=== PATIENT | female | born 2000 | race Caucasian/White ===

== ENCOUNTER 2024-12-03 09:29 | Emergency (ER) | payer SELFPAY ==
[~2024-12-03] VITALS: Ht 149.9 cm; Wt 58.9 kg
[2024-12-03 09:34] VITALS: O2SAT 98
[2024-12-03] MEDS ORDERED: METOCLOPRAMIDE HCL 10MG TABLET PO ONE (12:15)
[2024-12-03] MEDS ORDERED: ONDA4TAB50 MT (12:52)
[2024-12-03] MEDS ORDERED: IBUP-2029 MT (12:52)
[2024-12-03] MEDS: KETOROLAC 15MG/ML VIAL IM SCH (13:00)
[2024-12-03] MEDS ORDERED: ACETAMINOPHEN 325MG TABLET PO SCH (13:00)
[2024-12-03] MEDS: KETOROLAC 15MG/ML VIAL IM ONE (13:15)
[2024-12-03] MEDS: ACETAMINOPHEN 325MG TABLET PO ONE (13:16)
[2024-12-03] MEDS: ONDANSETRON 4MG ODT PO ONE (13:16)
[2024-12-03] MEDS: METOCLOPRAMIDE HCL 10MG TABLET PO SCH (13:16)
[2024-12-03 13:20] VITALS: BP 121/71; PULSE 76; RESP 15; TEMP 36.83628; O2SAT 99
== END 2024-12-03 13:27 | disposition home or self-care (01) ==
LOC: ER 09:29
DX: R51.9 Headache, unspecified (principal); R11.0 Nausea
CPT/HCPCS: 99285; 70450; 81025; 96372; J1885; J8597; Q0162

== ENCOUNTER 2025-02-22 23:10 | Emergency (ER) | payer MEDICAID ==
[~2025-02-22] VITALS: Ht 152.4 cm; Wt 69.9 kg
[~2025-02-22 23:10] MED LIST: IBUP-2029 MT; ONDA4TAB50 MT
[2025-02-22 23:20] VITALS: O2SAT 99
[2025-02-22 23:24] VITALS: BP 131/82; PULSE 73; RESP 16; TEMP 36.6; O2SAT 99
[2025-02-23 00:07] LABS: CLARITY URINE TURBID (CLEAR); COLOR URINE RED (YELLOW); GLUCOSE URINE NEGATIVE (NEGATIVE); KETONES URINE NEGATIVE (NEGATIVE); LEUKOCYTE ESTERASE URINE 2+ (NEGATIVE); NITRITE URINE NEGATIVE (NEGATIVE); OCCULT BLOOD URINE 3+ (NEGATIVE); PH URINE 5.5 (4.5-8.0); PROTEIN URINE 2+ (NEGATIVE); SPECIFIC GRAVITY URINE 1.027 (1.005-1.030); UROBILINOGEN URINE 0.2 E.U./dL (0.2-1.0)
[2025-02-23 00:10] LABS: BASOPHILS % 0.7 % (0.0-2.0); DIFFERENTIAL COMMENT 0; EOSINOPHILS % 3.2 % (0.0-5.0); HEMATOCRIT. 39.7 % (36.0-48.0); HEMOGLOBIN. 13.5 g/dL (12.0-16.0); LYMPHOCYTES % 31.1 % (20.0-50.0); MEAN CORPUSCULAR VOLUME 100.1 fL (81.0-99.0); MEAN PLATELET VOLUME 9.4 fl (7.4-10.4); MONOCYTES % 8.3 % (2.0-8.0); NEUTROPHILS % 56.7 % (40.0-76.0); PLATELET 227 x1000/uL (130-400); RED BLOOD CELL COUNT 3.96 mill/uL (4.2-5.4)
[2025-02-23 00:18] LABS: CHLORIDE 105 mEq/L (98-107); POTASSIUM 3.3 mEq/L (3.5-5.1); SODIUM 140 mEq/L (136-145)
[2025-02-23 00:19] LABS: CALCIUM 9.8 mg/dL (8.7-10.4); CARBON DIOXIDE 25 mEq/L (21-32)
[2025-02-23 00:24] LABS: CREATININE 0.7 mg/dL (0.6-1.0); GLUCOSE 102 mg/dL (70-105); UREA NITROGEN BLOOD 8 mg/dL (9-23)
[2025-02-23 00:26] LABS: ALANINE AMINOTRANSFERASE 179 IU/L (10-49); ALBUMIN 3.9 g/dL (3.2-4.8); ASPARTATE AMINOTRANSFERASE 81 IU/L (<34); BILIRUBIN DIRECT 0.1 mg/dL (<=3.0); BILIRUBIN TOTAL 0.5 mg/dL (0.1-1.0); PROTEIN TOTAL 7.3 g/dL (6.0-8.3)
[2025-02-23 01:27] LABS: RBC URINE TNTC /hpf (0-2); SQUAMOUS EPITHELIAL CELL URINE 2+ /lpf (RARE/1+)
[2025-02-23 01:28] LABS: BACTERIA URINE TRACE
[2025-02-23 01:59] LABS: HCG SCREEN NEGATIVE
[2025-02-23] MEDS: KETOROLAC 30MG/ML VIAL IM ONE (02:32)
[2025-02-23] MEDS: ACETAMINOPHEN 325MG TABLET PO ONE (02:32)
[2025-02-23] MEDS: ONDANSETRON 4MG ODT PO ONE (02:32)
[2025-02-23] MEDS ORDERED: NITR100C MT (03:19)
== END 2025-02-23 03:32 | disposition home or self-care (01) ==
LOC: ER 23:20
DX: R10.2 Pelvic and perineal pain (principal); N39.0 Urinary tract infection, site not specified
CPT/HCPCS: 99283; 80076; 80048; 81003; 84703; 85025; 86850; 86900; 86901; 87086; 87186; 87077; 36415; 96372; J1885; Q0162

== ENCOUNTER 2025-07-26 13:57 | Emergency (ER) | payer MEDICAID ==
[~2025-07-26] VITALS: Ht 152.4 cm; Wt 65.0 kg
[~2025-07-26 13:57] MED LIST changes: +IBUP-1455 MT; -IBUP-2029 MT; +NITR100C MT
[2025-07-26 14:05] VITALS: O2SAT 99
[2025-07-26] MEDS ORDERED: DEXAMETHASONE 2MG TABLET PO ONE (17:30)
[2025-07-26] MEDS: DEXAMETHASONE 4MG TABLET PO SCH (18:00)
[2025-07-26] MEDS: SUMATRIPTAN SUCCINATE 6MG/0.5ML VIAL SUBCUT ONE (18:36)
[2025-07-26] MEDS: KETOROLAC 30MG/ML VIAL IM ONE (18:37)
[2025-07-26] MEDS ORDERED: HYDR50TA55 MT (19:22)
[2025-07-26] MEDS ORDERED: IBUP-1455 MT (19:22)
[2025-07-26] MEDS ORDERED: SUMA11AE2 BOTHNSTRLS (19:22)
[2025-07-26] MEDS: HYDROXYZINE 25MG TABLET PO ONE (19:37)
[2025-07-26 19:39] VITALS: BP 121/68; PULSE 60; RESP 15; TEMP 36.9; O2SAT 99
== END 2025-07-26 19:42 | disposition home or self-care (01) ==
LOC: ER 13:57
DX: G43.909 Migraine, unspecified, not intractable, without status migrainosus (principal); F41.9 Anxiety disorder, unspecified
CPT/HCPCS: 99284; 96372; J1885; J3030; J8540